=== PATIENT | male | born 1985 | race African-American/Black ===

== ENCOUNTER → 2016-08-26 | Outpatient (CLI) | payer OTHER ==
--- NOTE | 2016-08-26 09:21 | RAD ---
EXAM: Renal/retroperitonal ultrasound HISTORY: Hematuria. COMPARISON: None. FINDINGS: Ultrasound of the kidneys, bladder and retroperitoneum was performed. The right kidney measures 10.7 cm. Cortical thickness and echogenicity are preserved. There is no hydronephrosis. The left kidney measures 12.7 cm. Cortical thickness and echogenicity are preserved. There is no hydronephrosis. The bladder is decompressed and not well visualized. IMPRESSION: 1. Unremarkable examination of the kidneys. No hydronephrosis.
== END | disposition home or self-care (01) ==
LOC: US 08:46
PROVIDERS: ATTEND Family Medicine
DX: Z87.448 Personal history of other diseases of urinary system (principal)
CPT/HCPCS: 76770